=== PATIENT | female | born 1990 ===

== ENCOUNTER 2022-08-15 00:24 | Inpatient (IN) | payer MEDICAID ==
[2022-08-15] MEDS ORDERED: CARBOPROST TROMETHAMINE 250 MCG/1 ML INJ IM PRN (00:53)
[2022-08-15] MEDS ORDERED: BUTORPHANOL 2 MG/1 ML INJ IV PRN ×2 (00:53)
[2022-08-15] MEDS ORDERED: MINERAL OIL 30 ML ORAL LIQD PO PRN (00:53)
[2022-08-15] MEDS ORDERED: TERBUTALINE 1 MG/1 ML INJ SUB-Q PRN (00:53)
[2022-08-15] MEDS ORDERED: LOPERAMIDE 2 MG CAP PO PRN (00:53)
[2022-08-15] MEDS ORDERED: miSOPROStol 200 MCG TAB PR PRN (00:53)
[2022-08-15] MEDS ORDERED: LIDOCAINE (2%) 20 MG/1 ML VIAL 20 ML MDV INFILTRATI ONE (00:53)
[2022-08-15] MEDS ORDERED: OXYTOCIN 10 UNIT/1 ML INJ IM PRN (00:53)
[2022-08-15] MEDS ORDERED: METHYLERGONOVINE MALEATE 0.2 MG/ML VIAL IM PRN (00:53)
[2022-08-15] MEDS ORDERED: ePHEDrine SULFATE 50 MG/1 ML INJ IV PRN ×2 (00:53→04:26)
[2022-08-15] MEDS ORDERED: ACETAMINOPHEN 325 MG TAB PO PRN ×2 (00:53→10:00)
--- NOTE | 2022-08-15 00:56 | History and Physical Report ---
History of Present Illness Date of examination: 08/15/22 Date of admission: 08/15/2022 Chief complaint: labor pain History of present illness: 31 Y/O now 40.2 weeks with care at [facility] presents to labor and delivery in active labor. Past History Past Medical History: no pertinent history Past Surgical History: no surgical history Family/Genetic History: hypertension Social history: no significant social history - Obstetrical History Expected Date of Delivery: 08/13/22 Actual Gestation: 40 Week(s) 2 Day(s) : 6 Para: 4 Spontaneous Abortions: 1 Number of Living Children: 4 Medications and Allergies Allergies Allergy/AdvReac Type Severity Reaction Status Date / Time No Known Allergies Allergy Unverified 08/15/22 02:29 Review of Systems All systems: negative - Physical Exam Breasts: Positive: deferred Cardiovascular: Regular rate Lungs: Positive: Clear to auscultation Abdomen: Positive: soft Genitourinary (Female): Positive: normal external genitalia Vulva: both: normal Vagina: Positive: normal moisture Uterus: Positive: enlarged Anus/Rectum: Positive: normal perianal skin Extremities: Positive: normal Deep Tendon Reflex Grade: Normal +2 - Obstetrical FHR: category 1 Uterine Contraction Monitor Mode: External Cervical Dilatation: 6 (arom @ 0330 light mec) Cervical Effacement Percentage: 70 station: -1 Uterine Contraction Pattern: Irregular Uterine Contraction Intensity: Mild Results Result Diagrams: 08/15/22 01:48 All other labs normal. Assessment and Plan A: 40.2 weeks in active labor P: Expect
[2022-08-15] MEDS ORDERED: OXYTOCIN DRIP 30 UNITS/500 ML BAG IV SCH ×2 (01:00)
[2022-08-15 02:04] LABS: Hematocrit 36.2 % (30.3-42.9); Hemoglobin 11.9 gm/dl (10.1-14.3); Mean Corpuscular HGB Conc 33 % (30-34); Mean Corpuscular Volume 88 fl (79-97); Platelet Count 185 K/mm3 (140-440); Red Blood Count 4.11 M/mm3 (3.65-5.03); Red Cell Distribution Width 13.7 % (13.2-15.2)
[2022-08-15] MEDS: LACTATED RINGERS 1,000 ML IV SCH ×2 (02:50→03:24)
[2022-08-15] MEDS ORDERED: fentaNYL-BUPIV 2 MCG/ML-0.125% 200 MCG/100 ML BAG EPIDURAL SCH (04:26)
[2022-08-15] MEDS ORDERED: NALOXONE 0.4 MG/1 ML INJ IV PRN (04:26)
--- NOTE | 2022-08-15 04:27 | Anesthesia Consultation ---
Anesthesia Consult and Med Hx Date of service: 08/15/22 - Airway Anesthetic Teeth Evaluation: Good ROM Head & Neck: Adequate Mental/Hyoid Distance: Adequate Mallampati Class: Class II Intubation Access Assessment: Probably Good - Pulmonary Exam CTA: Yes - Cardiac Exam Cardiac Exam: RRR - Pre-Operative Health Status ASA Pre-Surgery Classification: ASA2 Proposed Anesthetic Plan: Epidural - Pulmonary Hx Smoking: No Hx Asthma: No Hx Respiratory Symptoms: No SOB: No COPD: No Home Oxygen Therapy: No Hx Pneumonia: No Hx Sleep Apnea: No - Cardiovascular System Hx Hypertension: No Hx Coronary Artery Disease: No Hx Heart Attack/AMI: No Hx Angina: No Hx Percutaneous Transluminal Coronary Angioplasty (PTCA): No Hx Cardia Arrhythmia: No Hx Pacemaker: No Hx Internal Defibrillator: No Hx Valvular Heart Disease: No Hx Heart Murmur: No Hx Peripheral Vascular Disease: No - Central Nervous System Hx Neuromuscular Disorder: No Hx Seizures: No CVA: No Hx Back Pain: No Hx Psychiatric Problems: No - Gastrointestinal Hx Ulcer: No Hx Gastroesophageal Reflux Disease: No - Endocrine Hx Renal Disease: No Hx End Stage Renal Disease: No Hx Cirrhosis: No Hx Liver Disease: No Hx Insulin Dependent Diabetes: No Hx Non-Insulin Dependent Diabetes: No Hx Thyroid Disease: No Hx Hypothyroidism: No Hx Hyperthyroidism: No - Hematic Hx Anemia: No Hx Sickle Cell Disease: No - Other Systems Hx Alcohol Use: No Hx Substance Use: No Hx Cancer: No Hx Obesity: No
--- NOTE | 2022-08-15 04:28 | Progress Note ---
Labor Epidural - Labor Epidural Start Time: 04:00 Stop Time: 04:07 Performed by:: SERAFIN LEONARD Procedure: Epidural Requested for Labor Pain. H&P and PT Chart reviewed and consent obtained. Time out performed and the procedure was explained, all questions answered. Patient was placed in a sitting position with monitors applied. The PTs back was prepped and draped in usual sterile fashion. The Skin was localized with 3 mL of 1% lidocaine at L3-L4. A 17-gauge Touhy epidural needle was advanced to TAVIA with saline at 7 cm and no blood/CSF was noted via epidural needle. Epidural catheter was advanced to 12 cm. There was negative aspiration for blood and CSF in the catheter and negative response to a test dose of 3 ml 1.5% lidocaine w/ Epi and a sterile dressing was applied Patient tolerated the procedure well and there were no immediate complications noted.
--- NOTE | 2022-08-15 04:28 | Anesthesia Day of Surgery ---
Anesthesia Day of Surgery - Day of Surgery Patient Examined: Yes Patient H&P Reviewed: Yes Patient is NPO: Yes Beta Blockers: No Cardiac Clearance: No Pulmonary Clearance: No Norbert's Test: N/A
--- NOTE | 2022-08-15 09:50 | Procedure Note ---
OB Delivery Note - Delivery Date of Delivery: 08/15/22 Surgeon: KIKO RODRIGUEZ Estimated blood loss: 200cc - Vaginal Delivery presentation: vertex Delivery position: OA Intrapartum events: meconium Delivery augmentation: rupture of membranes, pitocin Delivery monitor: external FHT, external uterine, internal FHT Route of delivery: Delivery placenta: spontaneous Delivery cord: nuchal cord, 3 umbilical vessels Delivery laceration: none Anesthesia: epidural Delivery comments: of a viable male 8# 9oz on 08/15/22 @ 0932 over intact perineum. Placenta delivered 3VCI. 8/9. QBL 200 cc
[2022-08-15] MEDS ORDERED: oxyCODONE /ACETAMINOPHEN 5-325MG TAB PO PRN (10:00)
[2022-08-15] MEDS ORDERED: WITCH HAZEL/ GLYCERIN PAD TP PRN (10:30)
[2022-08-15] MEDS ORDERED: LANOLIN/ZINC/DIMETHICONE (LANSINOH) 7 GM TP PRN (10:30)
[2022-08-15] MEDS ORDERED: diphenhydrAMINE 25 MG CAP PO PRN (11:00)
[2022-08-15] MEDS: IBUPROFEN 800 MG TAB PO SCH ×2 (11:51→18:27)
--- NOTE | 2022-08-15 13:07 | Post Anesthesia Evaluation ---
- Post Anesthesia Evaluation Patient Participated: Yes Airway Patent: Yes Stable Respiratory Function: Yes Nausea/Vomiting: No Temp > 96.8F: Yes Pain Manageable: Yes Adequeate Hydration: Yes Anesthesia Complications: No Block Receding Appropriately: Yes Patient on Ventilator: No
[2022-08-15 20:45] LABS: Hematocrit 32.5 % (30.3-42.9)
[2022-08-15] MEDS ORDERED: MAGNESIUM HYDROXIDE (MOM) ORAL LIQD UDC PO PRN (22:00)
[2022-08-16] MEDS: IBUPROFEN 800 MG TAB PO SCH ×3 (00:53→16:56)
[2022-08-16 08:36] VITALS: BP 93/52
--- NOTE | 2022-08-16 12:19 | Progress Note ---
Assessment and Plan A: PP Day #1 Stable P: Follow Routine Orders D/C home today per patient request RTO in 6 Weeks Subjective - Subjective Date of service: 08/16/22 Patient reports: appetite normal, voiding normally, pain well controlled, fl atus, bowel movement, ambulating normally [place]: doing well, bottle feeding (and ) Objective - Vital Signs Latest vital signs: Vital Signs Temp Pulse Resp BP Pulse Ox Pulse Ox 08/16/22 08:06 97.1 F L 68 20 93/52 97 08/16/22 00:53 20 08/16/22 00:42 98.2 F 71 20 91/56 97 08/15/22 20:05 98 08/15/22 17:33 98.2 F 61 18 97/63 100 08/15/22 15:10 98 08/15/22 14:20 66 95 08/15/22 14:17 84 94 08/15/22 14:15 78 92 08/15/22 14:12 69 94 08/15/22 14:10 76 95 08/15/22 14:05 87 95 08/15/22 14:00 64 94 08/15/22 13:55 64 94 08/15/22 13:50 64 94 08/15/22 13:45 65 95 08/15/22 13:44 65 94 08/15/22 13:40 66 95 08/15/22 13:38 63 94 08/15/22 13:35 69 95 08/15/22 13:30 78 94 08/15/22 13:25 65 96 08/15/22 13:22 59 L 94 08/15/22 13:20 69 95 08/15/22 13:15 69 96 08/15/22 13:10 61 97 08/15/22 13:05 60 98 08/15/22 13:00 63 96 08/15/22 12:55 70 95 08/15/22 12:50 64 97 08/15/22 12:45 66 97 08/15/22 12:40 66 97 08/15/22 12:35 70 96 08/15/22 12:30 71 95 08/15/22 12:28 98.0 F 18 96 08/15/22 12:27 63 90/55 08/15/22 12:25 68 95 08/15/22 12:23 64 88/50 08/15/22 12:20 66 98 Intake and Output 08/15/22 08/16/22 08/16/22 22:59 06:59 14:59 Intake Total 600 240 Output Total 500 Balance 100 240 Intake: Oral 240 240 Intake, Free Water 360 Output: Urine 500 Void 500 Other: Total, Intake Amount 240 240 Total, Output Amount 500 # Voids Void 1 1 1 - Exam Breasts: Present: normal Cardiovascular: Present: Regular rate Lungs: Present: Clear to auscultation, Normal air movement Abdomen: Present: normal appearance, soft, normal bowel sounds Uterus: Present: normal, firm, fundal height below umbilicus Extremities: Present: normal
--- NOTE | 2022-08-16 12:20 | Discharge Summary ---
Providers - Providers Date of Admission: 08/15/22 00:53 Date of discharge: 08/16/22 Attending physician: JUJU TARIQ MD Primary care physician: JUJU TARIQ MD Hospitalization Reason for admission: active labor Delivery: Episiotomy: none Laceration: none Other procedures: none complications: none Discharge diagnosis: IUP at term delivered [place] baby: male Condition at discharge: Good Disposition: 01 HOME / SELF CARE / HOMELESS Plan - Provider Discharge Summary Activity: routine, no sex for 6 weeks, no heavy lifting 4 weeks, no strenuous exercise Diet: routine Instructions: routine Additional instructions: [] Smoking cessation referral if applicable(refer to patient education folder for contact #) [] Refer to [facility]'s [facility] Booklet Call your doctor immediately for: * Fever > 100.5 * Heavy vaginal bleeding ( >1 pad per hour) * Severe persistent headache * Shortness of breath * Reddened, hot, painful area to leg or breast * Drainage or odor from incision. * Keep incision clean and dry at all times and follow doctor's instructions regarding bathing/showering - Follow up plan Follow up: JUJU TARIQ MD [Primary Care Provider] - 6 Weeks
== END 2022-08-16 18:37 | disposition home or self-care (01) | DRG 775 ==
LOC: TRG 00:24 → APU 00:27 → TRG 00:53 → LD 00:53 → OB 14:43
PROVIDERS: ADMIT Obstetrics & Gynecology Gynecology; ATTEND Obstetrics & Gynecology Gynecology
PROC: 10E0XZZ Delivery of Products of Conception, External Approach (ICD-10-PCS; principal; 2022-08-15)
PROC: 10907ZC Drainage of Amniotic Fluid, Therapeutic from Products of Conception, Via Natural or Artificial Opening (ICD-10-PCS; 2022-08-15)
PROC: 3E0R3BZ Introduction of Anesthetic Agent into Spinal Canal, Percutaneous Approach (ICD-10-PCS; 2022-08-15)
PROC: 00HU33Z Insertion of Infusion Device into Spinal Canal, Percutaneous Approach (ICD-10-PCS; 2022-08-15)
DX: O77.0 Labor and delivery complicated by meconium in amniotic fluid (principal); Z37.0 Single live birth; Z3A.40 40 weeks gestation of pregnancy; Z20.822 Contact with and (suspected) exposure to COVID-19; O69.81X0 Labor and delivery complicated by cord around neck, without compression, not applicable or unspecified
CPT/HCPCS: 36415; 85014; 85018; 85027; 86850; 86900; 86901; G0378; J2590; J7120; U0003